=== PATIENT | male | born 1975 | race Hispanic/Latino ===

== ENCOUNTER 2022-03-04 18:04 | Emergency (ER) | payer OTHER, SELFPAY ==
[2022-03-04 18:45] LABS: #Basophils 0.1 thou/uL (0.0-0.2); #Eosinphils 0.1 thou/uL (0.0-0.7); #Lymphocytes 1.2 thou/uL (1.20-3.40); #Monocytes 0.6 thou/uL (0.11-0.59); #Neutrophils 14.1 thou/uL (1.40-6.50); %Basophils 0.7 % (0.0-1.0); %Eosinophils 0.4 % (0.0-10.0); %Lymphocytes 7.4 % (21.0-51.0); %Monocytes 3.9 % (0.0-10.0); %Neutrophils 87.6 % (42.0-75.0); Mean Corpuscular HGB CONC 31.1 g/dL (32.0-36.0); Mean Corpuscular Hemoglobin 28.8 pg (27.0-31.0); Mean Corpuscular Volume 92.5 fL (78.0-98.0); Mean Platelet Volume 7.6 fL (7.4-10.4); Platelet Count 300 thou/uL (130-400); RBC Distribution Width 12.6 % (11.5-14.5); Red Blood Cell (RBC) Count 5.92 mill/uL (4.70-6.10); White Blood Cell (WBC) Count 16.1 thou/uL (4.8-10.8)
[2022-03-04 18:54] LABS: PTT 27.8 sec (22.9-36.1); Prothrombin Time 13.2 sec (12.0-14.7)
[2022-03-04 18:57] LABS: D-Dimer Test Less than 0.27 *mcg/mL (0.27-0.43)
[2022-03-04 18:59] LABS: ALT (SGPT) 36 U/L (8-55); AST (SGOT) 31 U/L (5-34); Albumin 5.3 g/dL (3.5-5.0); Alkaline Phosphatase 109 U/L (40-110); Anion Gap 26 mmol/L (10-20); BUN (Urea Nitrogen) 23 mg/dL (8.9-20.6); Bilirubin, Total 0.7 mg/dL (0.2-1.2); Calc. Creatinine Clearance 0 mL/min (70-130); Calcium 11.1 mg/dL (7.8-10.44); Carbon Dioxide 19 mmol/L (22-29); Chloride 100 mmol/L (98-107); Globulin 3.9 g/dL (2.4-3.5); Glucose 185 mg/dL (70-105); Magnesium 2.2 mg/dL (1.6-2.6); Potassium 3.9 mmol/L (3.5-5.1); Protein, Total 9.2 g/dL (6.0-8.3); Sodium 141 mmol/L (136-145)
[2022-03-04] MEDS ORDERED: Aspirin Chewable 81 MG TAB ONE (19:57)
[2022-03-04] MEDS ORDERED: Cefepime 2 GM VIAL ONE (19:57)
[2022-03-04] MEDS ORDERED: Sodium Chloride 0.9% 100 ML ONE (19:57)
[2022-03-04] MEDS ORDERED: Sodium Chloride 0.9% 1,000 ML ONE (19:57)
[2022-03-04] MEDS ORDERED: Sodium Chloride 0.9% 500 ML ONE (19:57)
[2022-03-04 20:31] LABS: Clarity Cloudy (Clear); Leukocyte Negative (Negative); Nitrite Negative (Negative); Protein, Urine (Dipstick) 100 mg/dL (Neg-Trace); pH, Urine 5.5 (5.0-9.0)
[2022-03-04 20:32] LABS: Bilirubin Small (Negative); Blood, Urine Trace (Negative); Glucose, Urine (Dipstick) Negative (Negative); Ketone, Urine Trace mg/dL (Negative); Urobilinogen 0.2 mg/dL (Less than 2)
[2022-03-04 20:39] LABS: Bacteria/HPF 2+ HPF (None Seen); WBC/HPF 0-3 HPF (0-3)
[2022-03-04 20:40] LABS: Amphetamine Not Detected (NotDetected); Barbiturates Screen Not Detected (NotDetected); Benzodiazepine Screen Not Detected (NotDetected); Calcium Oxalate Crystals 2+ HPF (None Seen); Cocaine Metabolite Screen Not Detected (NotDetected); Medtox Control Line Valid? VALID (VALID); Methadone Not Detected (NotDetected); Methamphetamine Not Detected (NotDetected); Opiate Screen Not Detected (NotDetected); Oxycodone Screen Not Detected (NotDetected); Phencyclidine (PCP) Not Detected (NotDetected); THC/Cannabinoid Screen Not Detected (NotDetected); Tricyclic Screen Not Detected (NotDetected)
[2022-03-04 20:46] LABS: SARS-CoV-2 NAA Rapid Test Not Detected (NotDetected)
[2022-03-04 21:22] LABS: Alcohol Less than 10 mg/dL (Less than 10); CK (CPK) 314 U/L (30-200)
[2022-03-04 21:41] LABS: Lactic Acid 1.9 mmol/L (0.5-2.2)
== END 2022-03-04 22:25 | disposition short-term general hospital (02) ==
LOC: NAV ERS 18:04
DX: A41.9 Sepsis, unspecified organism (principal); R65.20 Severe sepsis without septic shock; N17.9 Acute kidney failure, unspecified; E86.0 Dehydration; R73.9 Hyperglycemia, unspecified; Z20.822 Contact with and (suspected) exposure to COVID-19
CPT/HCPCS: 36416; 70450; 71045; 80053; 80306; 80307; 81003; 81015; 82550; 83605; 83690; 83735; 84443; 84484; 85025; 85379; 85610; 85730; 87040; 93005; 94760; 96361; 96365; 96366; J0692; J3370; J3490; J7030; J7050; U0002

== ENCOUNTER 2024-04-19 15:03 | Emergency (ER) | payer SELFPAY | END 2024-04-19 16:30 | disposition home or self-care (01) | LOC: NAV ERS 15:03 | DX: M25.521 Pain in right elbow (principal) ==